=== PATIENT | male | born 1995 ===

== ENCOUNTER 2019-08-03 13:23 | Emergency (ER) | payer BC, OTHER ==
[2019-08-03] MEDS ORDERED: Albuterol/Ipratropium 3.0-0.5 MG/3 ML Neb Soln ONE (13:26)
[2019-08-03] MEDS ORDERED: Albuterol 0.5% 5 MG/ML Neb Soln 20 ML Bottle NEB ONE (13:30)
[2019-08-03] MEDS ORDERED: methylPREDNISolone Sodium Succinate 125 MG/2 ML SDV IVPUSH ONE (13:30)
[2019-08-03] MEDS ORDERED: Albuterol/Ipratropium 3.0-0.5 MG/3 ML Neb Soln NEB ONE (13:30)
--- NOTE | 2019-08-03 13:48 | EDM.PDOC ---
ED HPI GENERAL MEDICAL PROBLEM - General Chief Complaint: Respiratory Problem Stated Complaint: HARD TIME BREATHING Time Seen by Provider: 08/03/19 13:32 - History of Present Illness INITIAL COMMENTS - FREE TEXT/NARRATIVE: History of asthma with asthma attack x2 days getting worse progressively despite using only inhaler no triggering mechanism patient does not feel sick no fever chills no productive cough patient denies any flulike symptoms. Came in severely short of breath put on nebulizer treatment IV started and patient denies any other chronic health history Onset: Gradual Onset Date: 07/31/19 lungs, head Pain Score (Numeric/FACES): 7 - Related Data Allergies Allergy/AdvReac Type Severity Reaction Status Date / Time No Known Allergies Allergy Verified 08/03/19 13:28 Home Meds: Home Meds Albuterol [Ventolin HFA] 1 - 2 puff INH Q4H PRN 08/03/19 [History] predniSONE [Prednisone] 50 mg PO DAILY 5 Days #5 tablet 08/03/19 [Rx] Past Medical History Respiratory History: Reports: Asthma Musculoskeletal History: Reports: Back Pain, Chronic Social & Family History - Family History Family Medical History: Noncontributory - Tobacco Use Smoking Status *Q: Current Every Day Smoker Years of Tobacco use: 0 Packs/Tins Daily: 0 - Recreational Drug Use Recreational Drug Use: No ED ROS GENERAL - Review of Systems Review Of Systems: See Below Constitutional: Reports: No Symptoms HEENT: Reports: No Symptoms Respiratory: Reports: Shortness of Breath, Wheezing Cardiovascular: Reports: No Symptoms GI/Abdominal: Reports: No Symptoms Musculoskeletal: Reports: No Symptoms Skin: Reports: No Symptoms Neurological: Reports: No Symptoms Immunologic: Reports: No Symptoms ED EXAM, GENERAL - Physical Exam Exam: See Below Exam Limited By: No Limitations General Appearance: Alert, WD/WN, No Apparent Distress Eye Exam: Bilateral Eye: Normal Inspection Ears: Normal External Exam, Normal Canal, Hearing Grossly Normal, Normal TMs Ear Exam: Bilateral Ear: Auricle Normal, Canal Normal, TM normal Throat/Mouth: Normal Inspection, Normal Lips, Normal Teeth, Normal Gums, Normal Oropharynx, Normal Voice, No Airway Compromise Head: Atraumatic, Normocephalic Neck: Normal Inspection, Supple, Non-Tender, Full Range of Motion Respiratory/Chest: No Accessory Muscle Use, Chest Non-Tender, Rhonchi, Wheezing. No: Retractions Cardiovascular: Normal Peripheral Pulses, Regular Rate, Rhythm, No Edema, No Gallop, No JVD, No Murmur, No Rub GI/Abdominal: Normal Bowel Sounds, Soft, Non-Tender, No Organomegaly, No Distention, No Abnormal Bruit, No Mass Neurological: Alert, Oriented, CN II-XII Intact, Normal Cognition, Normal Gait, Normal Reflexes, No Motor/Sensory Deficits Psychiatric: Normal Affect, Normal Mood Course - Vital Signs Last Recorded V/S: Last Vital Signs Temp 99.3 F 08/03/19 13:24 Pulse 115 H 08/03/19 13:24 Resp 24 H 08/03/19 13:24 BP 134/95 H 08/03/19 13:24 Pulse Ox 90 L 08/03/19 13:24 - Orders/Labs/Meds Orders: Active Orders 24 hr Category Date Time Status RT Aerosol Therapy [RC] ASDIRECTED Care 08/03/19 13:30 Active CXR [Chest 1V Frontal] [CR] Stat Exams 08/03/19 13:32 Taken Labs: Laboratory Tests 08/03/19 08/03/19 Range/Units 13:25 13:25 WBC 18.47 H (4.0-11.0) K/uL RBC 5.47 (4.50-5.90) M/uL Hgb 16.5 (13.0-17.0) g/dL Hct 46.6 (38.0-50.0) % MCV 85.2 (80.0-98.0) fL MCH 30.2 (27.0-32.0) pg MCHC 35.4 (31.0-37.0) g/dL RDW Std Deviation 38.0 (28.0-62.0) fl RDW Coeff of Wallace 12 (11.0-15.0) % Plt Count 338 (150-400) K/uL MPV 10.70 (7.40-12.00) fL Neut % (Auto) 79.8 (48.0-80.0) % Lymph % (Auto) 9.4 L (16.0-40.0) % Calhoun % (Auto) 7.5 (0.0-15.0) % Eos % (Auto) 3.1 (0.0-7.0) % Baso % (Auto) 0.2 (0.0-1.5) % Neut # (Auto) 14.7 H (1.4-5.7) K/uL Lymph # (Auto) 1.7 (0.6-2.4) K/uL Calhoun # (Auto) 1.4 H (0.0-0.8) K/uL Eos # (Auto) 0.6 (0.0-0.7) K/uL Baso # (Auto) 0.0 (0.0-0.1) K/uL Nucleated RBC % 0.0 /100WBC Nucleated RBCs # 0 K/uL Sodium 142 (136-148) mmol/L Potassium 4.1 (3.5-5.1) mmol/L Chloride 104 (98-107) mmol/L Carbon Dioxide 28.4 (21.0-32.0) mmol/L BUN 16 (7.0-18.0) mg/dL Creatinine 1.3 (0.8-1.3) mg/dL Est Cr Clr Drug Dosing 94.13 mL/min Estimated GFR (MDRD) > 60.0 ml/min Glucose 94 (74-106) mg/dL Calcium 9.2 (8.5-10.1) mg/dL Total Bilirubin 0.4 (0.2-1.0) mg/dL AST 45 H (15-37) IU/L ALT 56 (14-63) IU/L Alkaline Phosphatase 101 (46-116) U/L Total Protein 8.3 H (6.4-8.2) g/dL Albumin 4.4 (3.4-5.0) g/dL Globulin 3.9 (2.6-4.0) g/dL Albumin/Globulin Ratio 1.1 (0.9-1.6) Meds: Medications Discontinued Medications Generic Name Dose Route Start Last Admin Trade Name Freq PRN Reason Stop Dose Admin Albuterol 10 mg 08/03/19 13:30 08/03/19 13:35 Proventil Neb Soln NEB 08/03/19 13:31 1 ml ONETIME ONE Administration Albuterol/Ipratropium Confirm 08/03/19 13:26 08/03/19 13:36 Duoneb 3.0-0.5 Mg/3 Ml Administered 08/03/19 13:27 Not Given Dose 3 ml .ROUTE .STK-MED ONE Albuterol/Ipratropium 3 ml 08/03/19 13:30 08/03/19 13:36 Duoneb 3.0-0.5 Mg/3 Ml NEB 08/03/19 13:31 3 ml ONETIME ONE Administration Methylprednisolone Sodium Succinate 125 mg 08/03/19 13:30 08/03/19 13:35 Solu-Medrol IVPUSH 08/03/19 13:31 125 mg ONETIME ONE Administration Departure - Departure Time of Disposition: 15:21 Disposition: Home, Self-Care 01 Condition: Good Clinical Impression: Exacerbation of asthma Qualifiers: Asthma severity: moderate - Discharge Information Instructions: Asthma, Adult Referrals: PCP,None [Primary Care Provider] - Forms: ED Department Discharge Sepsis Event Note - Evaluation Sepsis Screening Result: No Definite Risk - Focused Exam Vital Signs: Vital Signs Temp Pulse Resp BP Pulse Ox 08/03/19 13:24 99.3 F 115 H 24 H 134/95 H 90 L Date Exam was Performed: 08/03/19 Time Exam was Performed: 15:21 - My Orders Last 24 Hours: My Active Orders 08/03/19 13:30 RT Aerosol Therapy [RC] ASDIRECTED 08/03/19 13:32 CXR [Chest 1V Frontal] [CR] Stat - Assessment/Plan Last 24 Hours: My Active Orders 08/03/19 13:30 RT Aerosol Therapy [RC] ASDIRECTED 08/03/19 13:32 CXR [Chest 1V Frontal] [CR] Stat
[2019-08-03 14:27] LABS: BLOOD UREA NITROGEN,BUN 16 mg/dL (7.0-18.0); CARBON DIOXIDE,CO2 28.4 mmol/L (21.0-32.0); CHLORIDE,CL 104 mmol/L (98-107); GLUCOSE RANDOM 94 mg/dL (74-106); POTASSIUM,K 4.1 mmol/L (3.5-5.1); SODIUM,NA 142 mmol/L (136-148)
--- NOTE | 2019-08-03 15:28 | CR ---
Chest: Portable AP view of the chest was obtained. Comparison: No prior chest imaging. Heart size and mediastinum are normal. Lungs are clear. Bony structures show no discrete abnormality. Impression: 1. Nothing acute is appreciated on portable chest x-ray. Diagnostic code #1 This report was dictated in [place] Standard Time
== END 2019-08-03 16:01 | disposition home or self-care (01) ==
LOC: MW.ED 13:23
DX: J45.901 Unspecified asthma with (acute) exacerbation (principal); F17.210 Nicotine dependence, cigarettes, uncomplicated
CPT/HCPCS: 36415; 71045; 80053; 85025; 94640; 96374; 99285; J2930; 99283; J7620-GY